=== PATIENT | male | born 1985 | race African-American/Black ===

== ENCOUNTER 2016-11-30 13:52 | Emergency (ER) | payer OTHER ==
[~2016-11-30] VITALS: Ht 193 cm; Wt 65.8 kg
--- NOTE | ~2016-11-30 | EKG ---
[address] [address] [place] [address] ELECTROCARDIOGRAM REPORT Name: KENYON CLARKE [id number] Admission: 11/30/16 Attend Phys: Discharge: Date of : 87 Report #: [id number] THIS REPORT FOR: //name// [facility] ED Test Date: 2016-11-30 Test Time: 14:46:15 Pat Name: KENYON CLARKE Department: Room: Gender: Clerk Cashier: alan : 1985 Requested By: Estrellita Tolbert Order Number: [id number] MD: Ovidio Eckert Measurements Intervals [place] Rate: 73 P: 43 OK: 192 QRS: 28 QRSD: 102 T: 149 QT: 543 QTc: 599 Interpretive Statements Sinus rhythm Probable left ventricular hypertrophy Abnrm T, consider ischemia, anterolateral lds Compared to ECG 09/04/2016 10:21:42 no change Electronically Signed On 11-30-2016 18:30:56 CDT by Ovidio Eckert [email or web address] <ELECTRONICALLY SIGNED> By: Ovidio Eckert MD 11/30/16 1830 1446 1446 MD JOVAN [place]
[~2016-11-30 13:52] MED LIST: ACETAMINOPHEN325 M1 PO; ACIDOPHILUS LA1 EACH; APAP W/CODEINE1 TA2 PO; AZITHROMYCIN 2250 MG PO; BENADRYL25 MG PO; COLACE 100 MG100 MG PO; COLACE100 MG; DILAUDID 2 MG TA2 MG PO; DOXYCYCLINE 10100 M1 PO; FLORANEX PACKET1 GM PO; FOLIC ACID1 MG PO; GAVILAX17 GM PO; GLYCOLAX POWDER17 G1; HEALTHYLAX17 GM PO; HYDREA 500 MG500 M1 PO; HYDROCODON-ACE1 EAC7 PO; IBUPROFEN 400400 M2 PO; IBUPROFEN 600600 M1 OR; IBUPROFEN 800800 M1 PO; KEFLEX500 MG PO; LEVAQUIN 500 M500 M1 PO; LEVAQUIN 500 M500 M2 PO; LEVAQUIN 750 M750 MG; NOHOMEMEDICATIONS; NORCO 5-325 TA1 EACH PO; OXECTA5 MG PO; OXYCODONE HCL10 MG PO; OXYCODONE HCL5 M1; OXYCODONE HCL5 M1 PO; OXYCONTIN10 M1 PO; PERCOCET 10-321 EACH; PERCOCET 10-321 EACH PO; PERCOCET 5-3251 EACH PO; PHENERGAN PO; ROXICODONE5 M1 PO; TAMIFLU PO; TAMIFLU45 MG PO; TYLENOL325 MG PO; ULTRAM 50MG TAB50 MG PO; VITAMIN D2000 UNIT; VITAMIN D2000 UNIT PO; ZOFRAN ODT4 MG PO
[2016-11-30 16:10] LABS: MCH 27.5 pg (26.0-34.0); MCHC 36.5 g/dL (28.0-37.0); MCV 75.3 fL (80.0-100.0); PLATELET COUNT 405 thou/uL (150-400); RBC 2.43 mil/uL (4.50-6.00); RDW 25.8 % (10.5-14.5); WBC 22.9 thou/uL (4.0-11.0)
[2016-11-30 16:11] LABS: MANUAL DIFF YES
[2016-11-30 16:12] LABS: HEMATOCRIT 18.3 % (42.0-52.0); HEMOGLOBIN 6.7 gm/dL (14.0-18.0)
[2016-11-30 16:19] LABS: ANION GAP 8 mmol/L (7-16); BUN 10 mg/dL (7-18); CALCIUM 8.5 mg/dL (8.5-10.1); CHLORIDE 103 mmol/L (98-107); CO2 25 mmol/L (21-32); GLUCOSE 88 mg/dL (70-99); POTASSIUM 4.1 mmol/L (3.5-5.1); SODIUM 136 mmol/L (136-145)
[2016-11-30 16:30] LABS: ABSOLUTE RETIC COUNT 0.1882 10^6/uL; OBSERVED RETIC COUNT 7.68 % (0.6-2.6); TROPONIN-I < 0.04 ng/mL (<0.04-0.07)
[2016-11-30 17:14] LABS: ABSOLUTE NEUTROPHILS 18.3 thou/uL (1.4-8.2); POIKILOCYTOSIS 4+; POLYCHROMASIA 2+; TARGET CELLS 1+; TOTAL CELL COUNT 100
[2016-11-30 17:15] LABS: ANISOCYTOSIS 2+
[2016-11-30 17:16] LABS: HYPOCHROMASIA 1+
[2016-11-30] MEDS ORDERED: PERCOCET 5-3251 EACH PO (17:57)
== END 2016-11-30 19:27 | disposition home or self-care (01) ==
LOC: ER 13:52
PROVIDERS: Emergency Medicine
DX: D57.00 Hb-SS disease with crisis, unspecified (principal); Z88.1 Allergy status to other antibiotic agents

== ENCOUNTER 2017-05-24 20:45 | Emergency (ER) | payer OTHER ==
[~2017-05-24] VITALS: Ht 182.9 cm; Wt 63.5 kg
--- NOTE | ~2017-05-24 | EKG ---
[address] [address] ELECTROCARDIOGRAM REPORT Name: KENYON CLARKE [facility]: [facility] [id number] Admission: 05/24/17 Attend Phys: Discharge: 05/25/17 Date of : 87 Report #: [id number] THIS REPORT FOR: //name// [facility] ED Test Date: 2017-05-24 Test Time: 21:24:07 Pat Name: KENYON CLARKE Department: Room: Gender: M Real Estate Broker: Sean COREA : 1985 Requested By: Ramón Albert Order Number: [id number] MD: Aubrey Solano Measurements Intervals [place] Rate: 86 P: 50 DE: 183 QRS: 47 QRSD: 96 T: 57 QT: 405 QTc: 485 Interpretive Statements Sinus rhythm Probable left ventricular hypertrophy Borderline T abnormalities, lateral leads Borderline prolonged QT interval Baseline wander in lead(s) II,III,aVF Compared to ECG 11/30/2016 14:46:15 no significant change was found Electronically Signed On 05-26-2017 13:33:03 CDT by Aubrey Solano [email or web address] <ELECTRONICALLY SIGNED> By: Aubrey Solano MD, [facility] 05/26/17 1333 23 23 Aubrey Solano MD, [facility] /EPI
[~2017-05-24 20:45] MED LIST changes: -VITAMIN D2000 UNIT
[2017-05-24 22:18] LABS: ABG SAMPLE TYPE VENOUS; BE(vivo) -1.2 mmol/L (-2 to +3); HCO3 22.8 mmol/L (22.0-26.0); LACTATE 1.24 mmol/L (0.5-2.0); O2(CT) 5.2 mL/dL (15.0-23.0); O2Hb VENOUS 47.8 (65.0-85.0); PCO2 VENOUS 34.7 mmHg (41.0-51.0); PO2 VENOUS 33.5 mmHg (35.0-45.0); STICK SITE LFOREARM; sO2 VENOUS 67.1 % (65.0-85.0); tCO2 23.8 mmol/L (24.0-30.0)
[2017-05-24 22:22] LABS: ABSOLUTE NEUTROPHILS 14.2 thou/uL (1.4-8.2); BASOPHILS 0.6 % (0.0-2.0); EOSINOPHILS 3.9 % (0.0-3.0); HEMOGLOBIN 6.9 gm/dL (14.0-18.0); LYMPHOCYTES 14.3 % (24.0-44.0); MCH 27.5 pg (26.0-34.0); MCHC 38.2 g/dL (28.0-37.0); MCV 72.2 fL (80.0-100.0); MONOCYTES 10.6 % (1.0-8.0); PLATELET COUNT 458 thou/uL (150-400); POLYS 70.6 % (36.0-66.0); RBC 2.52 mil/uL (4.50-6.00); RDW 22.8 % (10.5-14.5); WBC 20.1 thou/uL (4.0-11.0)
[2017-05-24 22:28] LABS: ABSOLUTE RETIC COUNT 0.1781 10^6/uL; OBSERVED RETIC COUNT 7.01 % (0.6-2.6)
[2017-05-24 22:29] LABS: HEMATOCRIT 18.2 % (42.0-52.0); MANUAL DIFF NO
[2017-05-24 22:34] LABS: ANION GAP 8 mmol/L (7-16); BUN 10 mg/dL (7-18); CALCIUM 8.6 mg/dL (8.5-10.1); CHLORIDE 102 mmol/L (98-107); CO2 27 mmol/L (21-32); CREATININE 0.9 mg/dL (0.7-1.3); GLUCOSE 92 mg/dL (74-106); POTASSIUM 3.7 mmol/L (3.5-5.1); SODIUM 137 mmol/L (136-145)
[2017-05-24 22:35] LABS: APTT 27.8 Seconds (24.5-32.8); INR 1.2; PROTIME 12.1 Seconds (9.3-11.4)
[2017-05-24 22:40] LABS: ALBUMIN 4.2 g/dL (3.4-5.0); ALKALINE PHOSPHATASE 83 U/L (46-116); SGOT 52 U/L (15-37); SGPT 19 U/L (30-65); TOTAL BILIRUBIN 2.6 mg/dL (<0.1-1.0); TOTAL PROTEIN 7.9 g/dL (6.4-8.2); TROPONIN-I < 0.04 ng/mL (<0.04-0.07)
[2017-05-24 23:02] LABS: POLYCHROMASIA 1+
[2017-05-24 23:03] LABS: ANISOCYTOSIS 2+; POIKILOCYTOSIS 3+; TARGET CELLS 1+
== END 2017-05-25 01:48 | disposition home or self-care (01) ==
LOC: ER 20:45
PROVIDERS: Emergency Medicine
DX: D57.00 Hb-SS disease with crisis, unspecified (principal); D64.9 Anemia, unspecified; D72.829 Elevated white blood cell count, unspecified; Z88.1 Allergy status to other antibiotic agents

== ENCOUNTER 2019-01-25 21:57 | Emergency (ER) | payer OTHER ==
[~2019-01-25] VITALS: Ht 182.9 cm; Wt 108.9 kg
[2019-01-25 22:26] LABS: URINE BILIRUBIN NEGATIVE (Negative); URINE BLOOD NEGATIVE (Negative); URINE CLARITY CLEAR; URINE COLOR YELLOW; URINE GLUCOSE-RANDOM* NEGATIVE (Negative); URINE KETONES NEGATIVE (Negative); URINE LEUKOCYTES-REFLEX NEGATIVE (Negative); URINE NITRITE-REFLEX NEGATIVE (Negative); URINE PROTEIN (DIPSTICK) NEGATIVE (Negative); URINE SPECIFIC GRAVITY 1.015 (1.005-1.035); URINE UROBILINOGEN 0.2 E.U./dl (0.2-1.0)
[2019-01-25 22:56] LABS: HEMOGLOBIN 7.2 gm/dL (14.0-18.0); MCHC 36.7 g/dL (28.0-37.0)
[2019-01-25 22:58] LABS: ABSOLUTE NEUTROPHILS 6.7 thou/uL (1.4-8.2); BASOPHILS 0.7 % (0.0-2.0); EOSINOPHILS 8.4 % (0.0-3.0); LYMPHOCYTES 30.5 % (24.0-44.0); MCH 30.9 pg (26.0-34.0); MCV 84.2 fL (80.0-100.0); MONOCYTES 9.9 % (1.0-8.0); PLATELET COUNT 292 thou/uL (150-400); POLYS 50.5 % (36.0-66.0); RBC 2.33 mil/uL (4.50-6.00); RDW 23.5 % (10.5-14.5); WBC 13.3 thou/uL (4.0-11.0)
[2019-01-25 23:01] LABS: HEMATOCRIT 19.6 % (42.0-52.0)
[2019-01-25 23:03] LABS: ABSOLUTE RETIC COUNT 0.2132 10^6/uL; OBSERVED RETIC COUNT 9.11 % (0.6-2.6)
[2019-01-25 23:05] LABS: ANION GAP 12 mmol/L (7-16); BUN 15 mg/dL (7-18); CALCIUM 8.2 mg/dL (8.5-10.1); CHLORIDE 104 mmol/L (98-107); CO2 24 mmol/L (21-32); CREATININE 0.9 mg/dL (0.7-1.3); GLUCOSE 105 mg/dL (74-106); SODIUM 140 mmol/L (136-145)
[2019-01-25 23:15] LABS: ALBUMIN 3.8 g/dL (3.4-5.0); LIPASE 186 U/L (73-393); SGOT 39 U/L (15-37); SGPT 20 U/L (30-65); TOTAL BILIRUBIN 1.6 mg/dL (<0.1-1.0); TOTAL PROTEIN 6.9 g/dL (6.4-8.2); TROPONIN-I <0.06 ng/mL (<0.06)
[2019-01-25 23:18] LABS: ANISOCYTOSIS 3+
[2019-01-25 23:52] LABS: AMP/METHAMP Negative (Negative); BARBITURATES Negative (Negative); BENZODIAZEPINES Negative (Negative); COCAINE POSITIVE (Negative); METHADONE Negative (Negative); OPIATES Negative (Negative); PCP Negative (Negative)
[2019-01-26] MEDS ORDERED: NAPROSYN500 MG PO (01:25)
[2019-01-26 01:55] VITALS: BP 101/52
--- NOTE | 2019-01-26 08:24 | EKG ---
[address] [address] ELECTROCARDIOGRAM REPORT Name: KENYON CLARKE [facility] [id number] ������������������ Admission: 01/25/19 ������������������ Attend Phys: Discharge: 01/26/19 ������������������ Date of : 87 Report #: [id number] ����������������������������������������������������������������� [id number] THIS REPORT FOR: //name// [facility] ED Test Date: 2019-01-25 Test Time: 23:33:13 Pat Name: KENYON CLARKE Department: Room: Gender: M Business Support Associate: edilma : 1985 Requested By: Ramón Albert Order Number: [id number] MD: Goran Oneal Measurements Intervals [place] Rate: 64 P: 16 CT: 185 QRS: 31 QRSD: 107 T: 41 QT: 413 QTc: 426 Interpretive Statements Sinus rhythm Borderline abnrm T, anterolateral leads Compared to ECG 05/24/2017 21:24:07 T-wave abnormality no longer present Electronically Signed On 01-26-2019 8:24:19 CDT by Goran Oneal [email or web address] ��������������������������������������������� <ELECTRONICALLY SIGNED> ���������������������������������������� By: Goran Oneal MD ��������������������������������������������� 01/26/19 0824 32 32 Goran Oneal MD /YRIS
== END 2019-01-26 01:55 | disposition home or self-care (01) ==
LOC: ER 21:57
PROVIDERS: Emergency Medicine
DX: D57.00 Hb-SS disease with crisis, unspecified (principal); F14.10 Cocaine abuse, uncomplicated; R07.89 Other chest pain; R16.0 Hepatomegaly, not elsewhere classified; Z88.1 Allergy status to other antibiotic agents

== ENCOUNTER → 2019-02-16 | Outpatient (CLI) | payer OTHER ==
[~2019-02-16] MED LIST changes: +NAPROSYN500 MG PO
--- NOTE | 2019-02-16 14:39 | 2DMMODE ---
[facility] [address] [place] [address] 2 D/M-MODE ECHOCARDIOGRAM Name: TRICIAKENYONSHANI COPELAND Room #: REG CL [facility]#: [id number] ������������� Admission: 02/16/19 ������������� Attend Phys: Shelley Hewitt Discharge: ��� ������������� ��� Date of : 87 Date of Service: 02/16/19 1438 �� Report #: [id number] �������� ��������������������������������������������[id number] THIS REPORT FOR: //name// APPROVED REPORT Study performed: 02/16/2019 14:09:56 EXAM: Comprehensive 2D, Doppler, and color-flow Echocardiogram Patient Location: Out-Patient Status: routine BSA: 1.83 HR: 70 bpm BP: 116/64 mmHg Rhythm: NSR Other Information Study Quality: Excellent Indications Chest Pain Hx: Sickle cell anemia. 2D Dimensions RVDd: 45.74 mm IVSd: 12.13 (7-11mm) LVOT Diam: 23.56 (18-24mm) LVDd: 59.08 mm PWd: 12.29 (7-11mm) Ascending Ao: 33.54 (22-36mm) LVDs: 40.99 (25-40mm) Aortic Root: 32.68 mm Volumes Left Atrial Volume (Systole) Single Plane 4CH: 90.63 mL Single Plane 2CH: 71.12 mL LA ESV Index: 47.00 mL/m2 Aortic Valve AoV Peak Damien.: 1.55 m/s AO Peak Gr.: 9.63 mmHg LVOT Max P.80 mmHg LVOT Max V: 1.10 m/s YISSEL Vmax: 3.08 cm2 Mitral Valve E/A Ratio: 1.8 MV Decel. Time: 202.86 ms [facility] [address] [address] 2 D/M-MODE ECHOCARDIOGRAM Name: KENYON CLARKE Room #: REG CL [facility]#: [id number] ������������� Admission: 02/16/19 ������������� Attend Phys: Shelley Hewitt Discharge: ��� ������������� ��� Date of : 87 Date of Service: 02/16/19 1438 �� Report #: [id number] �������� ��������������������������������������������[id number] MV E Max Damien.: 1.12 m/s MV A Damien.: 0.63 m/s MV PHT: 58.83 ms IVRT: 58.82 ms Pulmonary Valve PV Peak Damien.: 1.20 m/s PV Peak Gr.: 5.74 mmHg Pulmonary Vein P Vein S: 0.55 m/s P Vein D: 0.56 m/s P Vein S/D Ratio: 0.98 Tricuspid Valve TR Peak Damien.: 2.38 m/s RAP Estimate: 5.00 mmHg TR Peak Gr.: 22.57 mmHg PA Pressure: 28.00 mmHg Left Ventricle Left ventricle is mildly dilated. There is normal LV segmental wall motion. Mild concentric left ventricular hypertrophy. Left ventricular systolic function is normal. LVEF is 55-60%. The left ventricular diastolic function is normal. Right Ventricle Right ventricle is mildly dilated. The right ventricular systolic function is normal. Atria Left atrium is moderately dilated. Right atrium is mildly dilated. Aortic Valve The aortic valve is normal in structure. No aortic regurgitation is present. There is no aortic valvular stenosis. Mitral Valve The mitral valve is normal in structure. Trace mitral regurgitation. No evidence of mitral valve stenosis. Tricuspid Valve The tricuspid valve is normal in structure. Trace to mild tricuspid regurgitation. Estimated PAP is 25-30mmHg. Pulmonic Valve The pulmonary valve is normal in structure. Trace pulmonic [facility] [address] [place] [address] 2 D/M-MODE ECHOCARDIOGRAM Name: LUIS DANIEL CLARKESHANI COPELAND Room #: REG CL [facility]#: [id number] ������������� Admission: 02/16/19 ������������� Attend Phys: Shelley Hewitt Discharge: ��� ������������� ��� Date of : 87 Date of Service: 02/16/19 1438 �� Report #: [id number] �������� ��������������������������������������������[id number] regurgitation. Great Vessels The aortic root is normal in size. The ascending aorta is normal in size. IVC is normal in size and collapses >50% with inspiration. Pericardium Cannot rule out small anterior pericardial effusion. <Conclusion> Left ventricle is mildly dilated. LVEF is 55-60%. Right ventricle is mildly dilated. The right ventricular systolic function is normal. Left atrium is moderately dilated. Right atrium is mildly dilated. The aortic valve is normal in structure. The mitral valve is normal in structure. Trace mitral regurgitation. The tricuspid valve is normal in structure. Trace to mild tricuspid regurgitation. Estimated PAP is 25-30mmHg. The pulmonary valve is normal in structure. Trace pulmonic regurgitation. Cannot rule out small anterior pericardial effusion. ��������������������������������������������� <ELECTRONICALLY SIGNED> ���������������������������������������� By: Shailesh Forde MD ��������������������������������������������� 02/16/19 1438 1438 1438 Shailesh Forde MD /INF
== END ==
LOC: CV 08:41
DX: I07.1 Rheumatic tricuspid insufficiency (principal); D57.00 Hb-SS disease with crisis, unspecified